=== PATIENT | male | born 1990 | race Caucasian/White ===

== ENCOUNTER 2022-08-29 15:26 | Outpatient (REF) | payer OTHER, SELFPAY | END 2022-08-29 15:27 | disposition home or self-care (01) | LOC: NCHCN 15:26 | PROVIDERS: Visit Provider Physician Assistant Medical | DX: J02.9 Acute pharyngitis, unspecified (principal) | CPT/HCPCS: 87070 ==

== ENCOUNTER 2022-08-29 15:28 | Outpatient (CLI) | payer OTHER, SELFPAY ==
--- NOTE | 2022-08-29 | DI.RAD_ITS ---
Exam(s) XR SOFT TISSUE NECK EXAM: XR SOFT TISSUE NECK CLINICAL HISTORY: SORE THROAT--J02.9. TECHNIQUE: 2D digital imaging was performed. Three images were obtained. COMPARISON: No exams were available for comparison FINDINGS: BONES: No acute fracture is present. Visualized vertebral body and disc heights are maintained. SOFT TISSUE:Airway is patent without radiopaque foreign body. The epiglottis is mildly enlarged. Pre vertebral soft tissues appear unremarkable. IMPRESSION: Mildly enlarged epiglottis. The airway remains patent. DATA REPOSITORY: RADIATION DOSE DELIVERED:
== END 2022-08-29 15:48 ==
LOC: DI 15:28
PROVIDERS: Visit Provider Physician Assistant Medical
DX: J02.9 Acute pharyngitis, unspecified (principal)
CPT/HCPCS: 70360

== ENCOUNTER 2023-08-21 11:02 | Emergency (ER) | payer OTHER, SELFPAY ==
[2023-08-21 11:06] VITALS: BP 171/101; PULSE 88; RESP 20; TEMP 36.8; O2SAT 99
--- NOTE | 2023-08-21 11:21 | ED.GENADUL_ITS ---
Discharge Plan Disposition Patient Disposition: Home Condition: Good Discharge Details Clinical Impression: Acute shoulder pain, Fall Primary Care Provider: Unknown,Unknown ED Provider: Odilia Majano Home Meds and New Rx's Prescriptions: No Action lisinopril 2.5 mg Tablet 2.5 mg PO DAILY Discharge Instructions Instructions: Shoulder Pain (ED) Additional Instructions: Take tylenol and ibuprofen over the counter for pain; follow the directions on the bottle. Call your primary care doctor today to schedule an appointment to follow up on your visit today and to discuss your blood pressure which was high in the emergency department today. Return to the emergency department for new or worsening symptoms. Stand Alone Forms: Work Release Medical Decision Making 33yo M with HTN presents with right shoulder pain after fall; fell from 6ft ladder, slid down wall next to him, and impacted his right shoulder and right posterior chest wall on landing. Unclear HS, no AC. Right shoulder pain, otherwise denies pain/injury/complaint. Hypertensive on arrival, vital signs otherwise reassuring. Normal physical and neurologic exam aside from mild pain with ROM at shoulder. C-spine clinically cleared. Given reassuring exam and lack of complaints, will not pursue labs/CT imaging; given mechanism will get shoulder and chest films. Tylenol & toradol for pain. XR independently reviewed; no fractures or shoulder dislocation on my view, agree with radiology reads below. On reassessment remains well appearing, pain tolerable. Discharged home; discharge instructions and return precautions were reviewed with patient who verbalized understanding. All questions were answered and he is in full agreement with the plan. Imaging Data Radiologic Study: Imaging: X-Ray Radiologist's impression: IMPRESSION: Unremarkable radiographs of the right shoulder. Radiologic Study #2: Imaging: X-Ray Radiologist's impression: IMPRESSION: No acute abnormality. HPI General Mode of arrival: ambulatory . Date/Time Provider Initiated Documentation: 08/21/23 11:08 . Limitations to Documentation: no limitations . Information obtained by: patient . HPI Narrative: 33yo M with HTN presents with right shoulder pain after fall. Was at work, on top of 6ft ladder, right lower leg of ladder collapsed and he fell backwards, slid down wall next to him, and impacted his right shoulder and right posterior chest wall on landing. May have struck his head, did not lose consciousness. Has mild right shoulder pain and a grinding sensation with ROM at shoulder. Otherwise denies pain or injury. No difficulty breathing or chest pain. No numbness or tingling. Not on blood thinners. He was in his usual state of health prior to this event. Related Data Home Medications Medication Instructions Recorded Confirmed lisinopril 2.5 mg tablet 2.5 mg PO DAILY 08/21/23 08/21/23 Allergies Allergy/AdvReac Type Severity Reaction Status Date / Time No Known Allergies Allergy Verified 08/26/22 09:45 General Stated Complaint: Orthopedic PRITI: 4 Review of Systems Narrative: see HPI PFSH All Active Problems (Updated 08/21/23 @ 12:10 by Odilia Majano MD) Acute shoulder pain (Acute) Fall (Acute) Social History Smoking risk assessment performed?: No Exam Narrative Exam Narrative: GENERAL: Alert, in no acute distress. SKIN: Warm and well perfused. No rashes, bruises, discolorations or abrasions. HEAD: Atraumatic, normocephalic without edema, discoloration or evidence of trauma. EYES: PERRL. No scleral icterus or conjunctival injection. Extraocular muscles intact without nystagmus or diplopia. No proptosis or enophthalmos. EARS: Normal appearing pinnae. No hemotympanum. MOUTH: No malocclusion or trismus. Moist mucus membranes without blood. Posterior pharynx without erythema or exudate. NECK: Trachea midline. No discolorations or edema. CV: Regular rate and rhythm, Normal s1 and s2. No murmurs, rubs, or gallops. PV: Radial pulses 2+ bilaterally and symmetric. 2+ capillary refill. No extremity edema. CHEST: No abrasions or ecchymosis. Chest symmetric with respirations. No chest wall tenderness. No crepitus. No step offs. Lungs are clear to auscultation bilaterally. ABDOMEN: No ecchymosis or abrasions. Soft, nondistended, nontender. BACK: No abrasions, skin openings, or ecchymosis. Spine without bony tenderness, no step offs. PELVIC: Pelvis stable, nontender to lateral compression MSK: No gross deformities or discolorations or lesions. Mild pain with ROM at right shoulder, otherwise tolerates full range of motion of extremities without tenderness. Neuro: GCS 15. PERRL. EOMI. Fluent speech, no dysarthria. Normal sensation in V1, V2, V3 bilaterally. No assymetry. Normal hearing to speech. No uvular deviation. 5/5 head turn and 5/5 shoulder shrug bilaterally. Midline tongue protrusion. Motor- 5/5 strength symmetric bilateral upper and lower extremities Sensation- Intact to light touch and symmetric multiple dermatomes including upper and lower extremities Gait/station: Normal stance. No truncal ataxia. Steady gait with equal normal steps Course Vital Signs Vital signs: Vital Signs Temperature 36.8 C 08/21/23 11:06 Pulse 88 08/21/23 11:06 Respiratory Rate 20 08/21/23 11:06 Blood Pressure 171/101 H 08/21/23 11:06 Pulse Oximetry 99 08/21/23 11:06 Temperature 36.8 C 08/21/23 11:06 Temperature Source Oral 08/21/23 11:06 Pulse 88 08/21/23 11:06 Respiratory Rate 20 08/21/23 11:06 Blood Pressure 171/101 H 08/21/23 11:06 Blood Pressure Position Sitting 08/21/23 11:06 Pulse Oximetry 99 08/21/23 11:06 Oxygen Delivery Method Room Air 08/21/23 11:06 Oxygen Flow Rate 0 08/21/23 11:06 Pain Level 5 08/21/23 11:06
[2023-08-21] MEDS: Acetaminophen 500 MG TAB 1000 MG PO (11:26)
[2023-08-21] MEDS: Ketorolac 15 MG/ML VIAL IM (11:26)
--- NOTE | 2023-08-21 11:41 | DI.RAD_ITS ---
Exam(s) XR SHOULDER RT COMPLETE 2+V EXAM: XR SHOULDER RT COMPLETE 2+V CLINICAL HISTORY: 6ft fall, right shoulder pain. TECHNIQUE: 2D digital imaging was performed. Five views. COMPARISON: No exams were available for comparison FINDINGS: BONES: No acute fracture is present. No bony destructive lesion is seen. JOINTS: No dislocation present. AC joint not widened SOFT TISSUE: Normal. IMPRESSION: Unremarkable radiographs of the right shoulder. DATA REPOSITORY: RADIATION DOSE DELIVERED:
--- NOTE | 2023-08-21 11:41 | DI.RAD_ITS ---
Exam(s) XR CHEST 2V PA LATERAL EXAM: XR CHEST 2V PA LATERAL CLINICAL HISTORY: 6ft fall, right shoulder pain TECHNIQUE: 2D digital imaging was performed. COMPARISON: No exams were available for comparison FINDINGS: HEART: Normal size. Aorta: Not dilated. PULMONARY VASCULATURE: Normal. LUNGS: Clear. PLEURAL SPACE: No pleural effusion or pneumothorax. BONE:Unremarkable for age. IMPRESSION: No acute abnormality. DATA REPOSITORY: RADIATION DOSE DELIVERED:
[2023-08-21 12:15] VITALS: BP 144/82; RESP 20; O2SAT 99
== END 2023-08-21 13:12 | disposition home or self-care (01) ==
PROVIDERS: Emergency Provider Student in an Organized Health Care Education/Training Program
DX: M25.511 Pain in right shoulder (principal); R07.89 Other chest pain; W11.XXXA Fall on and from ladder, initial encounter; Y93.89 Activity, other specified; Y92.59 Other trade areas as the place of occurrence of the external cause; Y99.0 Civilian activity done for income or pay
CPT/HCPCS: 81025; 96372; 99283; 71046; 73030; J1885